=== PATIENT | male | born 2000 | race Caucasian/White ===

== ENCOUNTER 2022-09-02 21:27 | Emergency (ER) | payer OTHER, SELFPAY ==
[2022-09-02 21:37] VITALS: BP 121/70; PULSE 61; RESP 18; TEMP 36.9; O2SAT 100; BMI 20.4
--- NOTE | 2022-09-02 21:44 | DI.RAD.S_ITS ---
PROCEDURE: XR FOREARM LT 2V INDICATIONS: injury, deformity and pain TECHNIQUE: 2 views of the forearm were acquired. COMPARISON: None. FINDINGS: Bones: No fractures or dislocations. No suspicious bony lesions. Soft tissues: No suspicious soft tissue calcifications or masses. IMPRESSION: 1. No fracture or dislocation. Dictated by: Omid Singh M.D. on 09/02/2022 at 22:52 Approved by: Omid Singh M.D. on 09/02/2022 at 22:53
--- NOTE | 2022-09-03 01:57 | ED.GENADULT ---
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 The spring was released and hit him in the radial side of his distal forearm. Significant contusion and minor abrasion that site. He is neurovascularly intact. He is concerned that he may have actually broken the bone and comes in for further evaluation Review of Systems Review of Systems Narrative: Pertinent positive and negative findings as per HPI Remainder of review of systems is otherwise unremarkable for Constitutional: Fevers, chills, weakness ENT: No sore throat, neck pain, ear pain CV: Chest pain, palpitations, Respiratory: Cough, wheeze, dyspnea GI: Nausea, vomiting, diarrhea, Patient History Social History Smoking Status: Current every day smoker Smoking Status: Current every day smoker tobacco type: vaping Substance Use Type: does not use Exam Initial Vital Signs Initial Vital Signs: Vital Signs Temperature 98.5 F 09/02/22 21:37 Pulse Rate 61 09/02/22 21:37 Respiratory Rate 18 09/02/22 21:37 Blood Pressure 121/70 09/02/22 21:37 Pulse Oximetry 100 09/02/22 21:37 Oxygen Delivery Method 09/02/22 21:37 General: Alert appropriate in no acute distress Respiratory: Able to speak in full sentences, no obvious respiratory distress Skin: No obvious rashes, warm and dry Neurologic: Grossly intact no obvious asymmetries or abnormalities Psych: appropriate insight and affect, cooperative Extremity: Approximately 2 x 3 cm contusion over the distal forearm radial side. zinging nerve pain from the contusion into the fingers without paresthesia. He is neurovascularly intact. There is no bony point tenderness. There is a minor abrasion that does not need additional treatment. Course Orders Ordered: ED Orders 09/02/22 21:44 XR forearm LT 2V Stat Vital Signs Vital signs: Vital Signs - 8 hr 09/02/22 21:37 Temperature 98.5 F Pulse Rate 61 Respiratory Rate 18 Blood Pressure 121/70 Pulse Oximetry 100 Oxygen Delivery Method Room Air Medical Decision Making Imaging Data XR forarm: Radiologist's Impression: FINDINGS:? ? Bones:? No fractures or dislocations.? No suspicious bony lesions.? ? Soft tissues:? No suspicious soft tissue calcifications or masses.? ? ? IMPRESSION:? ? 1.? No fracture or dislocation. ? ? Dictated by: Omid Singh M.D. on 09/02/2022 at 22:52 ? ? MDM Narrative Medical decision making narrative: Otherwise healthy 21-year-old young man with a car spring released and hit him the distal forearm. Significant contusion I expect bruising and continued pain however no bony injury. Placed in a wrist splint for comfort. Discussed ibuprofen, Tylenol, ice, keeping the hand elevated. Fortunately he is right handed and will be safe to return to work. Reassurance was given and he is discharged home Discharge Plan Departure Patient Disposition: Home Clinical Impression: Contusion of left wrist, initial encounter Instructions: DI for Wrist Pain Activity Restrictions/Additional Instructions: Thank you for coming in today Fortunately you did not break your wrist You did however cause quite a large hematoma. This is going to continue to her for a number of days. It is okay to use the wrist but, I believe that you will be much more comfortable with the slight immobilization that the wrist splint I have given you will offer. Using 400 mg of ibuprofen (2 [id number] pills) and 1 Tylenol every 6 hours can be very helpful in controlling pain. Be find that you are not improving at the end of the week, I would encourage you to be re-evaluated. Referrals: Provider,Sergio NATHAN [Primary Care Provider] -
--- NOTE | 2022-09-03 02:00 | PC.NURSE ---
MD to bedside
[2022-09-03 02:13] VITALS: BP 120/70; PULSE 58; RESP 16; O2SAT 100
== END 2022-09-03 02:15 | disposition home or self-care (01) ==
PROVIDERS: Emergency Provider Emergency Medicine
DX: S60.212A Contusion of left wrist, initial encounter (principal); W22.8XXA Striking against or struck by other objects, initial encounter
CPT/HCPCS: 73090; 99281; 99283